=== PATIENT | male | born 1970 ===

== ENCOUNTER 2017-10-08 11:00 | Outpatient (CLI) | payer OTHER | END 2017-10-08 11:01 | disposition home or self-care (01) | LOC: SLR 11:00 | PROVIDERS: ATTEND Internal Medicine | DX: G47.30 Sleep apnea, unspecified (principal); G47.09 Other insomnia; E11.65 Type 2 diabetes mellitus with hyperglycemia; I10 Essential (primary) hypertension; E78.4 Other hyperlipidemia | CPT/HCPCS: G0399 ==

== ENCOUNTER 2017-11-05 11:00 | Outpatient (CLI) | payer OTHER | END 2017-11-05 11:01 | disposition home or self-care (01) | LOC: SLR 11:00 | PROVIDERS: ATTEND Internal Medicine | DX: G47.33 Obstructive sleep apnea (adult) (pediatric) (principal); I10 Essential (primary) hypertension | CPT/HCPCS: 95811 ==